=== PATIENT | female | born 1975 | race Caucasian/White ===

== ENCOUNTER 2023-03-08 16:22 | Outpatient (AMB) | payer BC, SELFPAY ==
--- NOTE | 2023-03-08 16:24 | MHC.OFFWIV ---
Intake Vital Signs 03/08/23 16:26 Height 5 ft 2 in BP 134/80 Blood Pressure Location Rt brachial Position Sitting Pulse 83 Pulse Source Pulse Oximeter Temp 97.6 F Temp Source Temporal Artery Scan Pulse Oximetry (%) 98 Oxygen Delivery Method Room Air Intake Visit Reasons: EST/sinus infection?(lobby masked) Intake Note: Pt is here c/o possible sinus infection. Pt states she has been feeling congestion for over one week. Patient Tobacco Use Status: Current everyday Tobacco user Allergies No Known Allergies Allergy (Unverified 03/12/23 14:17) Medication List - Last Reconciled 03/12/23 by Leno Hutchins MD albuterol sulfate 90 mcg/actuation (Ventolin HFA) 1 inh inhalation QID PRN azithromycin (Zithromax) take 500 mg today (day 1), then 250 mg for 4 days (days 2-5) PO prednisone 60 mg (3 x 20 mg) PO DAILY Do you need a note to return to daycare/school/sports/work: No HPI EST/sinus infection?(lobby masked) HPI Details Patient presents for a sick visit. Reporting symptoms of sinus congestion, sore throat and difficulty swallowing. Low-grade fever. No family member is sick. No recent travel. Patient reports symptoms of malaise and fatigue. [facility] Social History Patient Tobacco Use Status: Current everyday Tobacco user Physical Exam Vital Signs: Last Vital Signs Temp 97.6 F 03/08/23 16:26 Pulse 83 03/08/23 16:26 BP 134/80 03/08/23 16:26 Pulse Ox 98 03/08/23 16:26 Oxygen Delivery Method Room Air 03/08/23 16:26 Const General: cooperative and healthy appearing Nutritional Appearance: well nourished Orientation/consciousness: patient oriented x3 Limitations: no limitations HEENT Head: Yes normal to inspection Eyes General: appearance normal, both eyes and all related structures Neck Neck: Yes normal visual inspection Chest Chest palpation & inspection: normal palpation of entire chest wall Resp Effort & Inspection: normal respiratory effort Neuro General: patient oriented x3 Assessment & Plan Assessment & Plan (1) Upper respiratory tract infection: Code(s): J06.9 - Acute upper respiratory infection, unspecified Plan: Antibiotics ordered. Increase fluid intake. Tylenol for aches and pains. If symptoms worsen, follow-up here for a recheck. Medications: New azithromycin (Zithromax) take 500 mg today (day 1), then 250 mg for 4 days (days 2-5) PO 6 tabs 0RF albuterol sulfate 90 mcg/actuation (Ventolin HFA) 1 inh inhalation QID PRN 8.5 grams 1RF shortness of breath or wheezing prednisone 60 mg (3 x 20 mg) PO DAILY 9 tabs 0RF Coding Level of Care Code Est Pt Level 3 (87391) Diagnoses Upper respiratory tract infection J06.9
[2023-03-08 16:26] VITALS: BP 134/80; PULSE 83; TEMP 36.4; O2SAT 98
== END 2023-03-08 16:50 | disposition home or self-care (01) ==
PROVIDERS: Visit Provider Internal Medicine
DX: J06.9 Acute upper respiratory infection, unspecified (principal)
CPT/HCPCS: 99213

== ENCOUNTER → 2025-01-24 08:32 | Outpatient (BNVA) | payer OTHER, SELFPAY | PROVIDERS: Visit Provider Physician Assistant | DX: S80.02XA Contusion of left knee, initial encounter (principal); W18.30XA Fall on same level, unspecified, initial encounter | CPT/HCPCS: 99203 ==